=== PATIENT | male | born 1990 | race Caucasian/White ===

== ENCOUNTER 2023-05-01 03:13 | Inpatient (IN) | payer MEDICAID ==
[~2023-05-01] VITALS: Ht 167.6 cm; Wt 104.8 kg
[2023-05-01] MEDS ORDERED: MAG HYDROX/AL HYDROX/SIMETH 30 ML SUSP UDCUP PO ONE (03:45)
[2023-05-01] MEDS ORDERED: MORPHINE SULFATE 2 MG/ML SYRINGE IVP ONE (03:45)
[2023-05-01] MEDS ORDERED: FAMOTIDINE 20 MG/2 ML VIAL IVP ONE (03:45)
[2023-05-01] MEDS ORDERED: ONDANSETRON HCL 4 MG/2 ML VIAL IVP ONE (03:45)
[2023-05-01] MEDS ORDERED: SODIUM CHLORIDE 0.9% 1,000 ML IV ONE (03:45)
[2023-05-01 04:14] LABS: BASOPHILS % (AUTO) 0.4 % (0.0-2.0); EOSINOPHILS % (AUTO) 0.3 % (1.0-6.0); HEMOGLOBIN 14.4 g/dL (13.5-17.5); LYMPHOCYTES # (AUTO) 1.8 K/uL (1.0-4.8); LYMPHOCYTES % (AUTO) 14.1 % (22.0-44.0); MEAN CORPUSCULAR HEMOGLOBIN 26.9 pg (26.0-34.0); MEAN CORPUSCULAR HGB CONC 32.7 G/dL (31.0-37.0); MEAN CORPUSCULAR VOLUME 82 fL (80-100); MONOCYTES # (AUTO) 0.6 K/uL (0.1-1.0); MONOCYTES % (AUTO) 4.8 % (2.0-9.0); NEUTROPHILS % (AUTO) 80.4 % (40.0-70.0); PLATELET COUNT (AUTO) 220 K/uL (150-450); RED BLOOD CELL COUNT(AUTO) 5.34 MIL/uL (4.50-5.90); RED CELL DISTRIBUTION WIDTH 13.2 % (11.5-14.5)
[2023-05-01 04:36] LABS: ALANINE AMINOTRANSFERASE 56 U/L (12-78); ALKALINE PHOSPHATASE 75 U/L (46-116); ANION GAP 9 mmol/L (8-16); ASPARTATE AMINOTRANSFERASE 22 U/L (15-37); B-TYPE NATRIURETIC PEPTIDE 15 pg/mL (0-100); BILIRUBIN,TOTAL 0.2 mg/dL (0.1-1.0); CALCIUM, TOTAL 8.4 mg/dL (8.8-10.5); CARBON DIOXIDE 29 mmol/L (22-29); CHLORIDE 104 mmol/L (98-107); CREATINE KINASE, TOTAL ONLY 50 U/L (39-308); CREATININE 0.85 mg/dL (0.60-1.30); GLOMERULAR FILTR. RATE CALC > 60 mL/min (>60); GLUCOSE,RANDOM 148 mg/dL (70-110); PHOSPHORUS 3.2 mg/dL (2.5-4.9); POTASSIUM 4.3 mmol/L (3.5-5.1); SODIUM SERUM 142 mmol/L (136-145)
[2023-05-01 04:37] LABS: ALBUMIN 3.4 g/dL (3.4-5.0); LIPASE 505 U/L (73-393); TOTAL PROTEIN, SERUM 7.4 g/dL (6.4-8.2)
[2023-05-01 04:42] LABS: COVID AG,FIA SOURCE NASOPHARYNGEAL
[2023-05-01] MEDS ORDERED: SODIUM CHLORIDE 0.9% 100 ML ONE (04:48)
[2023-05-01] MEDS ORDERED: IOHEXOL 350 MG/ML 100 ML VIAL ONE (04:48)
[2023-05-01 05:07] LABS: INFLUENZA TYPE A NEGATIVE FOR TYPE A (NEGATIVE); INFLUENZA TYPE B NEGATIVE FOR TYPE B (NEGATIVE)
[2023-05-01 12:06] VITALS: BP 114/65
[2023-05-01] MEDS: DEXTROSE 5%-0.45% SODIUM CHL 1,000 ML IV SCH (13:56)
[2023-05-01] MEDS ORDERED: RINGERS SOLUTION,LACTATED 1,000 ML IV ONE (14:51)
[2023-05-01 15:00] VITALS: BP 110/49
[2023-05-01] MEDS ORDERED: SODIUM CHLORIDE 0.9% 1,000 ML ONE (15:07)
[2023-05-01] MEDS ORDERED: BUPIVACAINE 0.25%/EPI 1:200,000/PF 10 ML VIAL ONE (15:08)
[2023-05-01] MEDS ORDERED: BUPIVACAINE 0.25%/EPI 1:200,000/PF 30 ML VIAL PERC ONE (16:04)
[2023-05-01] MEDS ORDERED: MEPERIDINE-PF 25 MG/ML VIAL IVP PRN (17:00)
[2023-05-01] MEDS ORDERED: FentaNYL CITRATE PF 100 MCG/2 ML VIAL ONE (17:35)
[2023-05-01] MEDS: FentaNYL CITRATE PF 100 MCG/2 ML VIAL IVP PRN ×2 (17:36→17:43)
[2023-05-01] MEDS ORDERED: HYDROmorphone HCL 2 MG/ML SYRINGE ONE (17:51)
[2023-05-01] MEDS: HYDROmorphone HCL 2 MG/ML SYRINGE IVP PRN ×3 (17:52→18:07)
[2023-05-01 18:31] VITALS: BP 137/99
[2023-05-01] MEDS: OXYGEN THERAPY IH SCH (20:00)
[2023-05-01 20:09] VITALS: BP 133/74
[2023-05-01] MEDS: MORPHINE SULFATE 2 MG/ML SYRINGE IVP PRN ×2 (20:12→23:05)
[2023-05-01] MEDS ORDERED: MAGNESIUM HYDROXIDE SUSPENSION 30 ML UDCUP PO PRN (23:15)
[2023-05-01] MEDS ORDERED: IPRATROPIUM BROMIDE 0.5 MG/2.5 ML NEB SOLUTION NEB PRN (23:15)
[2023-05-01] MEDS ORDERED: ALBUTEROL SULFATE 2.5 MG/0.5 ML NEB SOLUTION NEB PRN (23:15)
[2023-05-01] MEDS ORDERED: MORPHINE SULFATE 2 MG/ML SYRINGE IVP PRN (23:15)
[2023-05-01] MEDS ORDERED: ACETAMINOPHEN 325 MG TABLET PO PRN (23:15)
[2023-05-01] MEDS ORDERED: ONDANSETRON HCL 4 MG/2 ML VIAL IVP PRN (23:15)
[2023-05-01] MEDS ORDERED: ZOLPIDEM TARTRATE 5 MG TABLET PO PRN (23:15)
[2023-05-01] MEDS ORDERED: BISACODYL 10 MG RECTAL RECTAL SUPPOSITORY PR PRN (23:15)
[2023-05-01] MEDS ORDERED: HYDROCODONE/ACETAMINOPHEN 5-325 MG TABLET PO PRN (23:15)
[2023-05-01 23:36] LABS: BASOPHILS % (AUTO) 0.2 % (0.0-2.0); EOSINOPHILS % (AUTO) 0 % (1.0-6.0); HEMATOCRIT 43.9 % (41-53); HEMOGLOBIN 14.3 g/dL (13.5-17.5); LYMPHOCYTES # (AUTO) 0.9 K/uL (1.0-4.8); LYMPHOCYTES % (AUTO) 7.3 % (22.0-44.0); MEAN CORPUSCULAR HEMOGLOBIN 26.8 pg (26.0-34.0); MEAN CORPUSCULAR HGB CONC 32.5 G/dL (31.0-37.0); MEAN CORPUSCULAR VOLUME 82 fL (80-100); MONOCYTES # (AUTO) 0.2 K/uL (0.1-1.0); MONOCYTES % (AUTO) 1.3 % (2.0-9.0); NEUTROPHILS # (AUTO) 11.7 K/uL (1.8-7.7); PLATELET COUNT (AUTO) 261 K/uL (150-450); RED BLOOD CELL COUNT(AUTO) 5.34 MIL/uL (4.50-5.90); RED CELL DISTRIBUTION WIDTH 13.7 % (11.5-14.5)
[2023-05-01] MEDS ORDERED: SODIUM CHLORIDE 0.9% 500 ML IV ONE (23:37)
[2023-05-01 23:38] LABS: NEUTROPHILS % (AUTO) 91.2 % (40.0-70.0)
[2023-05-01 23:44] LABS: ANION GAP 6 mmol/L (8-16); CALCIUM, TOTAL 8.6 mg/dL (8.8-10.5); CARBON DIOXIDE 27 mmol/L (22-29); CHLORIDE 100 mmol/L (98-107); CREATININE 1.12 mg/dL (0.60-1.30); GLOMERULAR FILTR. RATE CALC > 60 mL/min (>60); GLUCOSE,RANDOM 175 mg/dL (70-110); POTASSIUM 4.4 mmol/L (3.5-5.1); SODIUM SERUM 133 mmol/L (136-145)
[2023-05-01 23:50] LABS: ALANINE AMINOTRANSFERASE 71 U/L (12-78); ALBUMIN 3.5 g/dL (3.4-5.0); ALKALINE PHOSPHATASE 75 U/L (46-116); ASPARTATE AMINOTRANSFERASE 30 U/L (15-37); BILIRUBIN,TOTAL 0.4 mg/dL (0.1-1.0); TOTAL PROTEIN, SERUM 7.7 g/dL (6.4-8.2)
[2023-05-01] MEDS: PIPERACILLIN/TAZO 3.375 GM/D5W 50 ML IV SCH (23:53)
[2023-05-02] MEDS: HEPARIN SODIUM,PORCINE 5,000 UNITS/ML VIAL SQ SCH ×4 (00:03→23:06)
[2023-05-02] MEDS: DEXTROSE 5%-0.45% SODIUM CHL 1,000 ML IV SCH ×2 (04:49→20:26)
[2023-05-02] MEDS: PIPERACILLIN/TAZO 3.375 GM/D5W 50 ML IV SCH ×4 (04:50→23:05)
[2023-05-02] MEDS: MORPHINE SULFATE 2 MG/ML SYRINGE IVP PRN ×2 (04:51→09:34)
[2023-05-02 05:20] VITALS: BP 132/87
[2023-05-02] MEDS ORDERED: 0.9% SODIUM CHLORIDE 10 ML VIAL IVP ONE (06:07)
[2023-05-02] MEDS ORDERED: ONDANSETRON HCL 4 MG/2 ML VIAL IVP ONE (06:07)
[2023-05-02] MEDS ORDERED: ROCURONIUM BROMIDE 10 MG/ML 5 ML VIAL IVP ONE (06:07)
[2023-05-02] MEDS ORDERED: SUGAMMADEX SODIUM 200 MG/2 ML VIAL IVP ONE (06:07)
[2023-05-02] MEDS ORDERED: FentaNYL CITRATE PF 100 MCG/2 ML VIAL IVP ONE (06:07)
[2023-05-02] MEDS ORDERED: ACETAMINOPHEN/ISO-OSM 1000 MG/100 ML BOTTLE IV ONE (06:07)
[2023-05-02] MEDS ORDERED: KETOROLAC TROMETHAMINE 60 MG/2 ML VIAL IM ONE (06:07)
[2023-05-02] MEDS ORDERED: DEXAMETHASONE SOD PHOS 4 MG/ML VIAL IVP ONE (06:07)
[2023-05-02] MEDS ORDERED: PROPOFOL 1% ISO-OSM 1000 MG/100 ML BOTTLE IV ONE (06:07)
[2023-05-02] MEDS ORDERED: LIDOCAINE/PF 2% 5 ML VIAL IM ONE (06:07)
[2023-05-02] MEDS ORDERED: MIDAZOLAM HCL 2 MG/2 ML VIAL IVP ONE (06:07)
[2023-05-02 07:29] VITALS: BP 130/84
[2023-05-02] MEDS: OXYGEN THERAPY IH SCH ×2 (08:00→20:00)
[2023-05-02] MEDS: PANTOPRAZOLE SODIUM 40 MG/VIAL IVP SCH (09:33)
[2023-05-02] MEDS: DOCUSATE SODIUM 100 MG CAPSULE PO SCH ×2 (09:33→20:27)
[2023-05-02] MEDS ORDERED: ACETAMINOPHEN/CODEINE 300-60 MG TABLET PO PRN ×2 (12:30)
[2023-05-02 14:40] VITALS: BP 124/71
[2023-05-02] MEDS: GuaiFENesin/D-METHORPHAN [SUGAR-FREE] 200-20MG/10 ML SYRUP UDCUP PO SCH ×3 (16:24→23:05)
[2023-05-02 19:48] VITALS: BP 127/75
[2023-05-03 04:20] VITALS: BP 117/67
[2023-05-03] MEDS: GuaiFENesin/D-METHORPHAN [SUGAR-FREE] 200-20MG/10 ML SYRUP UDCUP PO SCH ×2 (04:37→08:28)
[2023-05-03] MEDS: PIPERACILLIN/TAZO 3.375 GM/D5W 50 ML IV SCH (04:37)
[2023-05-03 07:30] VITALS: BP 99/57
[2023-05-03] MEDS: HEPARIN SODIUM,PORCINE 5,000 UNITS/ML VIAL SQ SCH (08:28)
[2023-05-03] MEDS: DOCUSATE SODIUM 100 MG CAPSULE PO SCH (08:28)
[2023-05-03] MEDS: PANTOPRAZOLE SODIUM 40 MG/VIAL IVP SCH (08:28)
[2023-05-03] MEDS: DEXTROSE 5%-0.45% SODIUM CHL 1,000 ML IV SCH (08:29)
[2023-05-03] MEDS ORDERED: ACET1TAB97 PO (10:15)
[2023-05-03] MEDS ORDERED: ACET-784 PO (10:56)
[2023-05-03] MEDS ORDERED: AMOX1TAB16 PO (10:56)
[2023-05-03] MEDS ORDERED: IBUP-1493 PO (10:56)
== END 2023-05-03 11:20 | disposition home or self-care (01) | DRG 263 ==
LOC: EMS 03:13 → 6S 11:10
PROVIDERS: ADMIT Hospitalist; ATTEND Hospitalist
PROC: 0FT44ZZ Resection of Gallbladder, Percutaneous Endoscopic Approach (ICD-10-PCS; principal; 2023-05-01 16:30)
DX: K80.00 Calculus of gallbladder with acute cholecystitis without obstruction (principal); Z20.822 Contact with and (suspected) exposure to COVID-19
CPT/HCPCS: 71045; 74177; 74181; 76705; 80053; 82550; 83690; 83735; 83880; 84100; 84484; 85025; 87081; 87804; 93005; 99285; C9113; G0238; J0131; J0690; J1100; J1170; J1644; J1885; J2250; J2270; J2405; J2543; J2704; J3010; J3490; J7030; J7040; J7050; J7120; Q9967; 36415-L1; 36415-TC